=== PATIENT | female | born 1965 | race Caucasian/White ===

== ENCOUNTER 2018-04-11 13:43 | Emergency (ER) | payer OTHER ==
[2018-04-11 13:55] VITALS: BP 140/82; PULSE 118; RESP 16; TEMP 98.6; O2SAT 99
--- NOTE | 2018-04-11 14:19 | PD ---
HPI Chief Complaint: Cardiac Complaint Time Seen by Provider: 14:03 Travel History International Travel<30 days: No Contact w/Intl Traveler<30days: No Traveled to known affect area: No History of Present Illness HPI 53-year-old female with no significant medical history presents emergency department for evaluation of her heart racing. Patient states she has never felt like this before. She states about an hour ago, her heart began to race. She states it feels like it is racing out of her chest. She denies any chest pain or shortness of breath. She denies any lightheaded sensation. She did have a Natalia latte preceding the onset of this, but states she drinks coffee every day. She denies any recent illnesses. Patient is on Prempro for menopause. She has no history of DVT or PE. She has no other symptoms to report at this time. PFSH Past Medical History Medical History: Denies Significant Hx Tetanus Vaccination: < 5 Years ?: Not : 2 Para: 2 Tubal Ligation: Yes Past Surgical History Section: Yes Social History Alcohol Use: Yes Tobacco Use: No Substance Use: No Allergies-Medications (Allergen,Severity, Reaction): Coded Allergies: No Known Allergies (Unverified , 04/11/18) Review of Systems Except as stated in HPI: all other systems reviewed are Neg Physical Exam Narrative GENERAL: Well-nourished female patient, ambulatory no acute distress. SKIN: Focused skin assessment warm/dry. HEAD: Atraumatic. Normocephalic. EYES: Pupils equal and round. No scleral icterus. No injection or drainage. ENT: No nasal bleeding or discharge. Mucous membranes pink and moist. NECK: Trachea midline. No JVD. CARDIOVASCULAR: Tachycardic rate and rhythm. No murmur appreciated. RESPIRATORY: No accessory muscle use. Clear to auscultation. Breath sounds equal bilaterally. GASTROINTESTINAL: Abdomen soft, non-tender, nondistended. Hepatic and splenic margins not palpable. MUSCULOSKELETAL: No obvious deformities. No clubbing. No cyanosis. No edema. NEUROLOGICAL: Awake and alert. No obvious cranial nerve deficits. Motor grossly within normal limits. Normal speech. PSYCHIATRIC: Appropriate mood and affect; insight and judgment normal. Data Data Last Documented VS Vital Signs Date Time Temp Pulse Resp B/P (MAP) Pulse Ox O2 Delivery O2 Flow Rate FiO2 04/11/18 16:52 89 20 140/77 (98) 99 04/11/18 14:25 Room Air 04/11/18 13:55 98.6 Orders Orders Electrocardiogram (04/11/18 14:05) Basic Metabolic Panel (Bmp) (04/11/18 14:20) Ckmb (Isoenzyme) Profile (04/11/18 14:20) Complete Blood Count With Diff (04/11/18 14:20) Magnesium (Mg) (04/11/18 14:20) Prothrombin Time / Inr (Pt) (04/11/18 14:20) Act Partial Throm Time (Ptt) (04/11/18 14:20) Troponin I (04/11/18 14:20) Ecg Monitoring (04/11/18 14:20) Bilateral Bp Monitoring (04/11/18 14:20) Iv Access Insert/Monitor (04/11/18 14:20) Oximetry (04/11/18 14:20) Oxygen Administration (04/11/18 14:20) Aspirin Chew (Aspirin Chew) (04/11/18 14:30) Sodium Chloride 0.9% Flush (Ns Flush) (04/11/18 14:30) Ct Pulmonary Angiogram (04/11/18 14:20) Chest, Pa & Lat (04/11/18 14:20) Sodium Chlor 0.9% 1000 Ml Inj (Ns 1000 M (04/11/18 14:30) Iohexol 350 Inj (Omnipaque 350 Inj) (04/11/18 16:00) Holter Monitor Recording (04/11/18 ) Ed Discharge Order (04/11/18 16:55) Labs Laboratory Tests Test 04/11/18 14:40 White Blood Count 8.4 TH/MM3 Red Blood Count 3.96 MIL/MM3 Hemoglobin 12.9 GM/DL Hematocrit 37.9 % Mean Corpuscular Volume 95.6 FL Mean Corpuscular Hemoglobin 32.6 PG Mean Corpuscular Hemoglobin Concent 34.1 % Red Cell Distribution Width 12.8 % Platelet Count 308 TH/MM3 Mean Platelet Volume 8.6 FL Neutrophils (%) (Auto) 63.9 % Lymphocytes (%) (Auto) 27.9 % Monocytes (%) (Auto) 5.4 % Eosinophils (%) (Auto) 2.0 % Basophils (%) (Auto) 0.8 % Neutrophils # (Auto) 5.3 TH/MM3 Lymphocytes # (Auto) 2.3 TH/MM3 Monocytes # (Auto) 0.5 TH/MM3 Eosinophils # (Auto) 0.2 TH/MM3 Basophils # (Auto) 0.1 TH/MM3 CBC Comment DIFF FINAL Differential Comment Prothrombin Time 10.8 SEC Prothromb Time International Ratio 1.1 RATIO Activated Partial Thromboplast Time 28.5 SEC Blood Urea Nitrogen 15 MG/DL Creatinine 0.85 MG/DL Random Glucose 102 MG/DL Calcium Level 8.5 MG/DL Magnesium Level 2.1 MG/DL Sodium Level 142 MEQ/L Potassium Level 3.8 MEQ/L Chloride Level 109 MEQ/L Carbon Dioxide Level 25.1 MEQ/L Anion Gap 8 MEQ/L Estimat Glomerular Filtration Rate 70 ML/MIN Total Creatine Kinase 62 U/L Troponin I LESS THAN 0.02 NG/ML MDM Medical Decision Making Medical Screen Exam Complete: Yes Emergency Medical Condition: Yes Medical Record Reviewed: Yes Differential Diagnosis Palpitations versus tachycardia versus SVT versus electrolyte abnormality versus anxiety Narrative Course 53-year-old female presents emergency department for evaluation of palpitations. Patient presents and is mildly tachycardic with heart rate in the 1 teens. She appears well. She is having no other symptoms. I discussed patient with my attending physician. We will move forward with workup and CT pulmonary angiogram. Last Impressions Chest X-Ray 04/11/18 1420 Signed Impressions: CONCLUSION: No active disease. Tortuous aorta. Mild scoliosis. CT Angiography 04/11/18 1420 Signed Impressions: CONCLUSION: 1. Negative for pulmonary embolus. Mild dependent atelectasis in the lungs. Sm all hiatal hernia. Laboratory Tests Test 04/11/18 14:40 White Blood Count 8.4 TH/MM3 Red Blood Count 3.96 MIL/MM3 Hemoglobin 12.9 GM/DL Hematocrit 37.9 % Mean Corpuscular Volume 95.6 FL Mean Corpuscular Hemoglobin 32.6 PG Mean Corpuscular Hemoglobin Concent 34.1 % Red Cell Distribution Width 12.8 % Platelet Count 308 TH/MM3 Mean Platelet Volume 8.6 FL Neutrophils (%) (Auto) 63.9 % Lymphocytes (%) (Auto) 27.9 % Monocytes (%) (Auto) 5.4 % Eosinophils (%) (Auto) 2.0 % Basophils (%) (Auto) 0.8 % Neutrophils # (Auto) 5.3 TH/MM3 Lymphocytes # (Auto) 2.3 TH/MM3 Monocytes # (Auto) 0.5 TH/MM3 Eosinophils # (Auto) 0.2 TH/MM3 Basophils # (Auto) 0.1 TH/MM3 CBC Comment DIFF FINAL Differential Comment Prothrombin Time 10.8 SEC Prothromb Time International Ratio 1.1 RATIO Activated Partial Thromboplast Time 28.5 SEC Blood Urea Nitrogen 15 MG/DL Creatinine 0.85 MG/DL Random Glucose 102 MG/DL Calcium Level 8.5 MG/DL Magnesium Level 2.1 MG/DL Sodium Level 142 MEQ/L Potassium Level 3.8 MEQ/L Chloride Level 109 MEQ/L Carbon Dioxide Level 25.1 MEQ/L Anion Gap 8 MEQ/L Estimat Glomerular Filtration Rate 70 ML/MIN Total Creatine Kinase 62 U/L Troponin I LESS THAN 0.02 NG/ML Findings are reviewed and discussed with patient. A Holter monitor is placed. She will be discharged home to follow-up with a primary care provider and cardiology. She agrees to return immediately with acute worsening symptoms. Diagnosis Primary Impression: Palpitation Additional Impression: Tachycardia Referrals: [facility] Primary Care Physician Patient Instructions: General Instructions, Tachycardia (ED) Additional Instructions: Follow-up with your primary care provider Follow-up with cardiology Return immediately with acute worsening symptoms Holter monitor is to be return in 24 hours Med/Other Pt SpecificInfo: No Change to Meds Disposition: 01 DISCHARGE HOME Condition: Stable LgRobyn BROOKS Apr 11, 2018 14:19
[2018-04-11 14:25] VITALS: O2SAT 99
[2018-04-11] MEDS ORDERED: SODIUM CHLOR 0.9% 1000 ML INJ 1,000 ML IV ONE (14:30)
[2018-04-11] MEDS ORDERED: ASPIRIN 81 MG CHEW TAB PO ONE (14:30)
[2018-04-11] MEDS ORDERED: SODIUM CHLORIDE 0.9% FLUSH 10 ML FLUSH IVF PRN (14:30)
[2018-04-11 15:09] LABS: AUTOMATED NEUTROPHIL # 5.3 TH/MM3 (1.8-7.7); BASOPHIL # 0.1 TH/MM3 (0-0.2); BASOPHIL % 0.8 % (0.0-2.0); EOSINOPHIL # 0.2 TH/MM3 (0-0.4); HEMATOCRIT 37.9 % (35.0-46.0); HEMOGLOBIN 12.9 GM/DL (11.6-15.3); LYMPH % 27.9 % (9.0-44.0); LYMPHOCYTE # 2.3 TH/MM3 (1.0-4.8); MEAN CELL VOLUME 95.6 FL (80.0-100.0); MEAN CORPUSCULAR HEMOGLOBIN 32.6 PG (27.0-34.0); MEAN CORPUSCULAR HGB CONC 34.1 % (32.0-36.0); MEAN PLATELET VOLUME 8.6 FL (7.0-11.0); MONO % 5.4 % (0.0-8.0); MONOCYTE # 0.5 TH/MM3 (0-0.9); NEUT % 63.9 % (16.0-70.0); PLATELET COUNT 308 TH/MM3 (150-450); RED BLOOD COUNT 3.96 MIL/MM3 (4.00-5.30); RED CELL DISTRIBUTION WIDTH 12.8 % (11.6-17.2); WHITE BLOOD COUNT 8.4 TH/MM3 (4.0-11.0)
--- NOTE | 2018-04-11 15:13 | RADRPT ---
EXAM DATE: 04/11/2018 3:02 PM EDT AGE/SEX: 53 years / Female INDICATIONS: Chest pain. Rapid heart beat. CLINICAL DATA: This is the patient's initial encounter. Patient reports that signs and symptoms have been present for 1 day and indicates a pain score of 0/10. MEDICAL/SURGICAL HISTORY: None. None. COMPARISON: No prior exams available for comparison. FINDINGS: PA and lateral views of the chest demonstrate the lungs to be symmetrically aerated without evidence of mass, infiltrate or effusion. The cardiomediastinal contours are unremarkable. Osseous structures are intact except mild scoliosis. CONCLUSION: No active disease. Tortuous aorta. Mild scoliosis. Electronically signed by: Zurdo Qureshi MD 04/11/2018 3:12 PM EDT
[2018-04-11 15:32] LABS: BICARBONATE 25.1 MEQ/L (21.0-32.0); BLOOD UREA NITROGEN 15 MG/DL (7-18); CALCIUM 8.5 MG/DL (8.5-10.1); CHLORIDE 109 MEQ/L (98-107); CREATININE 0.85 MG/DL (0.50-1.00); GLOMERULAR FILTRATION RATE 70 ML/MIN (>89); GLUCOSE,RANDOM 102 MG/DL (74-106); MAGNESIUM 2.1 MG/DL (1.5-2.5); SODIUM (NA) 142 MEQ/L (136-145)
[2018-04-11 15:34] LABS: TROPONIN I LESS THAN 0.02 NG/ML (0.02-0.05)
[2018-04-11] MEDS ORDERED: IOHEXOL 350 MG/ML 10 ML VIAL (for RAD DIAG) IVCONTRAST ONE (16:00)
[2018-04-11 16:04] LABS: INTERNATIONAL NORMALIZED RATIO 1.1 RATIO; PROTHROMBIN TIME - PATIENT 10.8 SEC (9.8-11.6)
--- NOTE | 2018-04-11 16:35 | RADRPT ---
EXAM DATE: 04/11/2018 4:20 PM EDT AGE/SEX: 53 years / Female INDICATIONS: Chest discomfort today. CLINICAL DATA: This is the patient's initial encounter. Patient reports that signs and symptoms have been present for 1 day and indicates a pain score of 2/10. MEDICAL/SURGICAL HISTORY: None. Tubal ligation. RADIATION DOSE: 13.95 CTDI (mGy) COMPARISON: No prior exams available for comparison. TECHNIQUE: Volumetric scanning was performed using a multi-row detector CT scanner during bolus infu agustin of 69 ml Omnipaque 350 (iohexol) nonionic water-soluble contrast as a single exam dose. The elvis a was post processed with a variety of visualization algorithms including full volume maximum intensi ty projection and sliding thin slab reformation. Using automated exposure control and adjustment of the mA and/or kV according to patient size, radiation dose was kept as low as reasonably achievable t o obtain optimal diagnostic quality images. DICOM format image data is available electronically for review and comparison. FINDINGS: No filling defects to suggest pulmonary embolic disease. Minimal dependent atelectasis in the lungs. No pleural or pericardial effusion. No acute findings in the upper abdomen. Small hiatal hernia. CONCLUSION: 1. Negative for pulmonary embolus. Mild dependent atelectasis in the lungs. Small hiatal hernia. Electronically signed by: Zurdo Qureshi MD 04/11/2018 4:33 PM EDT
[2018-04-11 16:52] VITALS: BP 140/77; PULSE 89; RESP 20; O2SAT 99
--- NOTE | 2018-04-12 23:30 | EKG ---
Date Performed: 04/11/2018 Time Performed: 14:10:55 PTAGE: 53 years EKG: SINUS TACHYCARDIA NONSPECIFIC ST & T-WAVE ABNORMALITY ABNORMAL RHYTHM ECG NO PREVIOUS TRACING DOCTOR: Danilo Green Interpretating Date/Time 04/12/2018 23:29:03
--- NOTE | 2018-04-13 06:52 | HM ---
Date Performed: 04/11/2018 Time Performed: 17:37:00 HOOKUP DATE: 04/11/18 05:37:00 PM Sun ANALYSIS START TIME: 04/11/2018 5:42:00 PM ANALYSIS END TIME: 04/12/2018 5:46:00 PM PATIENT AGE: 53 PATIENT HEIGHT PATIENT WEIGHT DRUG LIST PATIENT DIAGNOSIS: chest complaint TEST NARRATIVE: The patient's average heart rate was 80 BPM. Heart rates greater than 120 B PM were noted < 1% of the time. No episodes of bradycardia were noted. No pauses exceeding 2.0 s econds were noted. 13 ventricular ectopics, which represented < 1% of the total beat count, were noted. The highest ventricular ectopic frequency occurred from 07:00 AM to 08:00 AM Mon. During thi s time 7 VE(s) occurred. Ventricular ectopics were observed as 13 isolated beat(s) only. No couplet s or runs were noted. 67 supraventricular ectopics, which represented < 1% of the total beat coun t, were noted. The highest supraventricular ectopic frequency occurred from 05:00 AM to 06:00 AM Mon . During this time 10 SVE(s) occurred. No episodes of ST depression (defined as -1.0 mm or more) were noted in channel 1. No episodes of ST depression (defined as -1.0 mm or more) were noted in ch gladis 2. No episodes of ST depression (defined as -1.0 mm or more) were noted in channel 3. PATIENT DIARY WAS NOT RETURNED WITH HOLTER MONITOR. TEST INTERPRETATION: No diary was returned. No significant pauses are present. The underlying rh hm is Sinus rhythm with average rate 80 bpm and range of 55 to 122 bpm.Occasional premature atrial contractions are see n with rare atrial runs of up to six beats. Rare isolated PVCs are seen. Signed by : Kota Hawkins
== END 2018-04-11 17:42 | disposition home or self-care (01) ==
LOC: NEPC 13:43
DX: R00.2 Palpitations (principal); R94.31 Abnormal electrocardiogram [ECG] [EKG]; M41.9 Scoliosis, unspecified; K44.9 Diaphragmatic hernia without obstruction or gangrene; J98.11 Atelectasis; I49.1 Atrial premature depolarization; I49.3 Ventricular premature depolarization
CPT/HCPCS: 71046; 71275; 80048; 82550; 83735; 84484; 85025; 85610; 85730; 93005; 93225; 93226; 96360; 96361; 99285; J7030; Q9967